=== PATIENT | female | born 1995 | race Caucasian/White ===

== ENCOUNTER 2018-06-30 22:43 | Emergency (ER) | payer OTHER ==
[~2018-06-30] VITALS: Ht 165.1 cm; Wt 99.8 kg
[2018-06-30 22:48] VITALS: Ht 165.1 cm; Wt 99.8 kg
[2018-07-01] MEDS ORDERED: ONDANSETRON (ODT) 4 MG TAB ODT STA (02:18)
[2018-07-01] MEDS ORDERED: ONDA4TAB14 PO (03:06)
[2018-07-01] MEDS ORDERED: D-ME118S24 PO (03:06)
[2018-07-01] MEDS ORDERED: OSEL75CA23 PO (03:06)
--- NOTE | 2018-07-01 03:08 | ERD ---
ER Documentation Chief Complaint Chief Complaint headache sore throat chills vomiting ROS All systems reviewed and are negative except as per history of present illness. Medications Home Meds Active Scripts Oseltamivir Phosphate* (Tamiflu*) 75 Mg Capsule, 75 MG PO BID for flu for 5 D ays, #10 CAP Prov:KATHLEEN FERNANDEZ DO 07/01/18 D-Methorphan Hb/P-Epd HCl/Bpm (Niotntubag-Piveabqguhs-Bd Syr) 118 Ml Syrup, 5 ML PO Q4H PRN for COUGH for 10 Days, #1 BOTTLE Prov:KATHLEEN FERNANDEZ DO 07/01/18 Ondansetron (Ondansetron Odt) 4 Mg Tab.rapdis, 4 MG PO Q6H PRN for NAUSEA AND/OR VOMITING, #15 TAB Prov:KATHLEEN FERNANDEZ DO 07/01/18 PMhx/Soc Medical and Surgical Hx: pt denies Medical Hx, pt denies Surgical Hx Hx Psychiatric Problems: Yes (Anxiety) Hx Alcohol Use: Yes (Socially) Hx Substance Use: No Hx Tobacco Use: Yes (Socially) Smoking Status: Current some day smoker Physical Exam Vitals Vital Signs Date Temp Pulse Resp B/P (MAP) Pulse Ox O2 O2 Flow FiO2 Time Delivery Rate 06/30/18 100.5 114 20 123/72 100 22:48 (89) Physical Exam Const: No acute distress Head: Atraumatic Eyes: Normal Conjunctiva ENT: Normal External Ears, Nose and Mouth. Neck: Full range of motion. No meningismus. Resp: Clear to auscultation bilaterally Cardio: Regular rate and rhythm, no murmurs Abd: Soft, non tender, non distended. Normal bowel sounds Skin: No petechiae or rashes Back: No midline or flank tenderness Ext: No cyanosis, or edema Neur: Awake and alert Psych: Normal Mood and Affect Results 24 hrs Current Medications Medications Dose Sig/Lashonda Start Time Status Last (Trade) Ordered Route PRN Stop Time Admin Dose Reason Admin Ondansetron 4 mg ONCE STAT 07/01/18 DC 07/01/18 HCl (Zofran ODT 02:18 07/01/18 02:30 Odt) 02:19 Departure Diagnosis: Primary Impression: URI (upper respiratory infection) Condition: Fair Patient Instructions: Preventing Common Respiratory Infections Referrals: COMMUNITY CLINICS YOU HAVE RECEIVED A MEDICAL SCREENING EXAM AND THE RESULTS INDICATE THAT YOU DO NOT HAVE A CONDITION THAT REQUIRES URGENT TREATMENT IN THE EMERGENCY DEPARTMENT. FURTHER EVALUATION AND TREATMENT OF YOUR CONDITION CAN WAIT UNTIL YOU ARE SEEN IN YOUR DOCTORS OFFICE WITHIN THE NEXT 1-2 DAYS. IT IS YOUR RESPONSIBILITY TO MAKE AN APPOINTMENT FOR FOLOW-UP CARE. IF YOU HAVE A PRIMARY DOCTOR --you should call your primary doctor and schedule an appointment IF YOU DO NOT HAVE A PRIMARY DOCTOR YOU CAN CALL OUR PHYSICIAN REFERRAL HOTLINE AT IF YOU CAN NOT AFFORD TO SEE A PHYSICIAN YOU CAN CHOSE FROM THE FOLLOWING [facility] [id number] [facility]. [facility] [address] [facility] [address] [facility] [facility] [address] [facility] [address] [facility]. [facility]. [address] Additional Instructions: Call your primary care doctor TOMORROW for an appointment during the next 1-2 days.See the doctor sooner or return here if your condition worsens before your appointment time. KATHLEEN FERNANDEZ DO Jul 01, 2018 03:08
[2018-07-01 03:13] VITALS: BP 113/67; PULSE 90; RESP 20
== END 2018-07-01 04:12 | disposition home or self-care (01) ==
LOC: FTE 22:43
DX: J06.9 Acute upper respiratory infection, unspecified (principal); F17.210 Nicotine dependence, cigarettes, uncomplicated
CPT/HCPCS: 99283